=== PATIENT | female | born 1980 | race Caucasian/White ===

== ENCOUNTER 2020-12-15 18:49 | Emergency (ER) | payer BC, SELFPAY ==
[2020-12-15 18:49] VITALS: BP 145/101; PULSE 110; RESP 19; TEMP 38.2; O2SAT 96; BMI 36.9
[2020-12-15] MEDS: Ondansetron ODT 4 MG Tablet PO (21:11)
[2020-12-15] MEDS: Ketorolac 30 MG/ML Syringe IM (21:12)
[2020-12-15 21:23] VITALS: PULSE 99; O2SAT 95
--- NOTE | 2020-12-15 22:24 | EX.ED.DYSGE1 ---
HPI History of Present Illness Chief Complaint: General Illness Narrative Narrative: Patient presenting due to concern for potential coronavirus. Patient's tested positive earlier this week the patient developed symptoms on Friday. She states that she has been having fevers, myalgias, sore throat, cough, loose stools and some nausea but no significant vomiting. Patient denies any underlying history of lung disease. She denies any shortness of breath. She denies any chest pain or hemoptysis. Patient has been taking thqa-puc-ajxctyh remedies at home with modest relief. [facility] Medical History Cyst Depression Home Medications ondansetron 8 mg PO Q8H PRN PRN #20 tab 12/15/20 [Rx Last Taken Unknown] phenol [Chloraseptic Throat Flournoy] 4 spray MUCOUS MEMBRANE Q4H PRN #20 ml 12/15/20 [Rx Last Taken Unknown] Allergy/AdvReac Type Severity Reaction Status Date / Time adhesive Allergy Rash Verified 12/15/20 18:52 Social History Smoking Status: Former smoker ROS ROS ED Constitutional Constitutional ED: Reports chills and fever(s) ENT ENT ED: Denies rhinorrhea Cardiovascular Cardiovascular: Denies chest pain Respiratory/Chest Respiratory/Chest: Reports cough and dyspnea Gastrointestinal Gastrointestinal: Reports diarrhea and nausea Genitourinary Genitourinary ED: Denies dysuria or hematuria Musculoskeletal Musculoskeletal: Reports myalgias Integumentary Denies rash Neurologic Neurologic: Denies paresthesias or weakness Psychiatric Psychiatric: Denies depression Endocrine Endocrinology: Denies fatigue Allergic/Immunologic Allergic/Immunologic ED: Denies urticaria EXAM Physical Exam Const Vital Signs: 12/15/20 18:49 12/15/20 21:14 12/15/20 21:23 Temperature 100.8 F H Temperature Source Temporal Pulse Rate 110 H 99 Respiratory Rate 19 H Respiratory Pattern Normal Blood Pressure 145/101 H Blood Pressure Mean 115 Pulse Ox 96 95 Oxygen Delivery Method Room Air Room Air Positive well nourished and well developed General Appearance ED: well developed and NAD HEENT Reports moist mucous membranes Negative for trauma or tenderness Eyes EOMs intact bilaterally Neck no lymphadenopathy, supple and no JVD Chest Wall inspection of chest normal Resp normal respiratory effort and clear to auscultation bilaterally Cardio regular rate, regular rhythm, no murmurs and peripheral pulses 2+ throughout GI normal to inspection, nondistended, normoactive bowel sounds, non-tender and no masses Palpation: soft Back/Spine normal to inspection Extremity normal to inspection General Extremety ED: Negative for tenderness Neuro oriented x3 and no sensory deficits noted Sensorium / Orientation: alert Motor Exam: strength 5/5 throughout Psych mental status grossly normal Skin no rashes or lesions noted MDM MDM MDM Narrative Medical decision making narrative: Patient presented due to concern for coronavirus. She is nontoxic-appearing, well-hydrated, I do not believe that IV or imaging are indicated. This was confirmed by swab. Patient was given Toradol and Zofran and had symptomatic improvement on repeat evaluation. She will be discharged with a course of Zofran and Chloraseptic for sore throat. Patient was discharged in improved condition. Discharge Plan Triage Chief Complaint: General Illness ED Provider: Roberto Escalona Dx/Rx/DC Orders Clinical Impression: COVID-19 Instructions: Coronavirus Disease 2019 (COVID-19): Caring for Yourself or Others Prescriptions: New Chloraseptic Throat Flournoy 1.4 % aerosol,spray 4 spray mucous membrane Q4H PRN (Reason: sore throat) Qty: 20 RF: 0 ondansetron 4 mg tablet,disintegrating 8 mg PO Q8H PRN PRN (Reason: Nausea) Qty: 20 RF: 0 Primary Care Provider: Leticia Lamar Referrals: Leticia Lamar MD [Primary Care Provider] - 10-14 Days if not better Disposition Disposition: Home, Self Care
== END 2020-12-15 22:35 | disposition home or self-care (01) ==
PROVIDERS: Emergency Provider Emergency Medicine; PCP Family Medicine
DX: U07.1 COVID-19 (principal); Z87.891 Personal history of nicotine dependence
CPT/HCPCS: 87426; 96372; 99283

== ENCOUNTER 2022-07-12 16:22 | Emergency (ER) | payer BC, SELFPAY ==
[2022-07-12 16:23] VITALS: BP 138/84; PULSE 87; RESP 18; TEMP 35.9; O2SAT 98; BMI 43.7
== END 2022-07-12 17:45 | disposition left against medical advice (07) ==
LOC: ED 17:56
PROVIDERS: PCP Physician Assistant
DX: K92.2 Gastrointestinal hemorrhage, unspecified (principal); Z53.21 Procedure and treatment not carried out due to patient leaving prior to being seen by health care provider

== ENCOUNTER 2022-10-25 05:42 | Day surgery (SDC) | payer BC, SELFPAY ==
--- NOTE | 2022-10-25 | EMB_PTH ---
PATIENT: KENNEDY FOFANA [place] [facility] [place][id number] AGE/SX: 42/F ROOM: RE10/25/[address]: Dr. Rosalie Polk, MDDOB: 1980 BED: DIS: 10/25/2022 SPEC #: [id number] RECD: 10/25/22 11:41 STATUS: NADJA ANGELES #: [id number] NANCY: 10/25/22 00:[address]: Rosalie Polk DEPT: SURGICAL PATHOLOGY RECD BY: Jud Deluca ENTERED: 10/25/22 12:24 SP TYPE: ENDOM BX/C AYAANHR DR: MARLEN Ash Tissues: A - Endometrium, NOS B - Fallopian tube Procedures: Surgery Specimen Level II Surgery Specimen Level IV HEADER OPERATION: Laparoscopic salpingectomy PRE-OP DIAGNOSIS: Abnormal uterine bleeding, endometrial polyp, sterilization TISSUE SUBMITTED: A - Endometrial shavings, B - Bilateral tubes MICROSCOPIC DIAGNOSIS A - Endometrial shavings: Secretory endometrium. B - Bilateral fallopian tubes, salpingectomy: Bilateral fallopian tubes, no pathologic diagnosis. SJ: 10/28/2022 MICROSCOPIC DESCRIPTION Slides are reviewed. GROSS DESCRIPTION A - Received in fixative is one container labeled with the patient's name and designated endometrial shavings. The specimen consists of multiple irregular fragments of miramontes-pink soft tissue that in aggregate measure 3.0 x 2.5 x 0.3 cm. The specimen is totally submitted in one cassette. B - Received in fixative is one container labeled with the patient's name and designated bilateral fallopian tubes. The specimen consists of bilateral fallopian tubes in multiple pieces. Two segments of fallopian tube measures 7.5 cm in length and 0.5 cm in diameter and 4.2 cm in length and 0.5 cm in diameter. One segment consists of fallopian tube with fimbrial end measuring 2.0 cm in length and 1.0 cm in diameter. The fallopian tubes are not identified as right or left. Also present in the container are multiple fragments of soft tissue consistent with fimbrial end measuring in aggregate 1.5 x 1.0 x 0.3 cm. Sections reveal unremarkable cut surfaces. Certified Athletic Trainer sections are submitted in two cassettes as follows: 1?- one segment of fallopian tube and smaller segment of fallopian tube with fimbrial end, 2 - second segment of fallopian tube and fimbrial end in multiple pieces. / MING:miriam 10/25/2022 TC:4 CPT: 08631 x2, [id number]
[2022-10-25 06:38] VITALS: BP 112/79; PULSE 75; RESP 18; TEMP 36.6; O2SAT 97; BMI 42.3
[2022-10-25] MEDS: Lactated Ringers 1,000 ML 15 ML IV (06:38)
[2022-10-25 06:40] LABS: Hematocrit 41.6 % (37-47); Hemoglobin 13.8 g/dL (12.0-15.0); Mean Corp Hgb Conc 33.2 g/dL (32-36); Mean Corpuscular Hgb 29.4 pg (27.0-32.0); Mean Corpuscular Volume 88.7 fL (81-99); Platelet Count 245 K/mm3 (150-450); RBC Distribution Width SD 42.3 fl (35.1-43.9); Red Blood Count 4.69 M/mm3 (4.2-5.4); White Blood Count 10.4 K/mm3 (4.4-11.0)
[2022-10-25 06:55] LABS: Internal QC Validated? YES +Cl - CLEAR BKGD; Pregnancy, Urine Negative Negative
--- NOTE | 2022-10-25 07:17 | PCM.HP.BLA ---
History and Physical Date of Admission: 10/25/22 Pre-Op History and Physical ? HPI: The patient is a 42 year old female presenting for pre-operative visit. She is scheduled for Hysteroscopy D&C and possible polypectomy, jeannie ablation, laparoscopic salpingectomy for AUB, endometrial polyp And desires sterilization on 10/25/22 Procedure discussed along with risks, benefits and complications. Other alternatives discussed for management. Consent form signed? Yes. ? ? PAST MEDICAL HISTORY PAST MEDICAL HISTORY Diagnosis Date ? Abnormal uterine bleeding (AUB) ? ? Female infertility ? ? ? PAST SURGICAL HISTORY PAST SURGICAL HISTORY Procedure Laterality Date ? APPENDECTOMY ? ? ? PAST SURGICAL HISTORY OF ? ? ? cyst removal from umbilical area ? PAST SURGICAL HISTORY OF ? ? ? cyst removed from fallopian tubes ? ? ? CURRENT MEDICATIONS Current Outpatient Medications Medication Sig Dispense Refill ? buPROPion XL (WELLBUTRIN XL) 150 mg 24 hr tablet Take 150 mg by mouth. ? ? ? busPIRone (BUSPAR) 15 mg tablet Take 15 mg by mouth twice daily. ? ? ? Ibuprofen-diphenhydrAMINE HCl (IBUPROFEN PM) 200-25 mg cap Take by mouth. ? ? ? No current facility-administered medications for this visit. ? ? ALLERGIES: Adhesive ? PERSONAL HISTORY: SOCIAL HISTORY Social History ? Tobacco Use ? Smoking status: Former ? ? Types: Cigarettes ? Smokeless tobacco: Never Vaping Use ? Vaping Use: Former Substance Use Topics ? Alcohol use: Never ? Drug use: Never ? FAMILY HISTORY: FAMILY HISTORY No family history on file. ? REVIEW OF SYMPTOMS: negative except as noted above PHYSICAL EXAMINATION: ? VITALS: Last menstrual period 08/22/2022. ? GENERAL: The patient is well nourished, well hydrated in no acute distress. , The patient is oriented to time, place, and person. NECK: full range of motion LUNGS: Clear to auscultation bilaterally. no wheezes, rhonchi or rales HEART: Regular rate and rhythm, Normal heart sounds, and No murmurs or gallops ? IMPRESSION: 42yo with AUB, endometrial polyp, Desires sterilization ? PLAN: Hysteroscopy, dilation and curettage, polypectomy with Jeannie endometrial ablation and laparoscopic bilateral salpingectomy ? Pt has been counseled on risks/benefits and alternatives of surgery including but not limited to anesthesia, bleeding, infection, injury to pelvic structures including bowel, bladder, ureters and vessels. Pt wishes to proceed with surgery at this time. ? Pre and post op instructions reviewed ? ? I have reviewed and updated past medical and surgical history, medications and allergies Rosalie Schreiber MD
[2022-10-25] MEDS: Bupivacaine Mpf 0.5% 30 ML VIAL (08:52)
--- NOTE | 2022-10-25 09:19 | PCM.OPRPT ---
Report of Operation Date of Procedure: 10/25/22 Pre-Operative Diagnosis: AUB, EM polyp, Desires strerlization Post-Operative Diagnosis: same (possible polypoid tissue) Surgery/Procedure Performed:: Hysteroscopy, D&C, Attempted jeannie ablation converted to HTA, Laparoscopic bilateral salpingectomy Description of Surgical Findings:: cavity anteverted 8cm with cervix 4cm, too error code 006 with jeannie- thought to be too narrow. HTA performed without complication. Upon hysteroscopy thickened what apperead to be polypoid tissue- resected with Symphion. Bilateral Physiological ovarian cysts, Significant adhesion left adnexa to bowel, unable to remove left fimbria. tubes feel very firm. Surgeon: Rosalie Polk iron miner blasting: None Type of Anesthesia: General and Local Special Medications: 0.5% marcaine Specimen's removed: bilateral fallopian tubes, Endometrial curettings Drains: none Estimated Blood Loss (mL): 5cc Fluids Replaced: 1000 Description of Procedure: Informed consent was obtained the patient was taken the operating room she was placed in supine position. She was given anesthesia. She was then placed in the [facility] where she was prepped and draped in the normal sterile fashion. At this time the weighted speculum was placed in the posterior fornix of vagina. Single-tooth tenaculum was used to gently grasp the anterior lip the cervix. At this time the uterine cavity was sounded to approximately 8 cm, endocervix 4cm- anteverted uterus. Gentle dilatation was performed once adequate dilatation of the cervix was achieved the hysteroscope using normal saline as a distention medium was placed. Tubal ostia visualized. thickened endometrium with polypoid appearing tissue Symphion resecting device used to obtain endometrial curettings and remove tissue. Tissue will be sent to pathology for evaluation. Jeannie opened set to 4cm, severely anteverted- able error code 006- at this time decision made to change to HTA, this was performed for total 10min at 82degree Cel[place] without any leaks, good seal on cervix. Good visualization during entire procedure. After 10min cycle and coold down Tenaculum removed. and Manipulator was placed. Legs then placed in parallel with the abdomen the tenaculum and the weighted speculum were removed. 2 towel clamps were placed at level of umbilicus. Marcaine was injected infraumbilical and a small incision was made. The 5 mm trocar was placed under direct visualization. CO2 gas was used to insufflate the intra-abdominal cavity. Upon inspection no gross abnormalities appreciated- the uterus anteverted, bowel adherant to left adnexal region and bilateral small physiological ovarian cysts. At this time then the LLQ and RLQ ports were placed First Marcaine was injected and small incision was made a knife and the 5 mm trocars were placed. At this time then tubes were traced back to the fimbriated ends. Enseal was used to coagulate and ligate along mesosalpinx bilaterally until tubes removed completely. THE LEFT- FIMBRIA not able to be removed as it was adherant to the BOWEL- shantanu placed over this area as there was some oozing from an attempt to dissect it off bluntly. Good hemostasis was appreciated. At this time procedure was deemed complete successful. The gas was desufflated on from the intra-abdominal cavity. The trochars were removed. Skin was closed using 4-0 Monocryl in a subcutaneous fashion. Dermabond glue was placed. Instrument lap and needle counts were correct ?2. The uterine manipulator was removed. Vaginal sweep was performed it was negative. There were no complications anticipated normal postoperative course for this patient. Fluid deficiet for symphion 600cc. Grafts/Implants Used: none Procedure Start Time: 07:51 Procedure Stop Time: 09:19 Complications none Admit VTE Documentation VTE Present on Admission: Yes VTE Mechan Device Prophylaxis: SCD's VTE Pharm Prophylaxis ordered?: No Reason prophylaxis not ordered:: Procedure Not Indicated
[2022-10-25 09:30] VITALS: BP 110/72; BP 112/79; PULSE 72; RESP 16; TEMP 37.3; O2SAT 96
--- NOTE | 2022-10-25 09:30 | DCINST_ITS ---
Discharge Instructions Diet Discharge Diet: No restrictions Activity May resume sexual activity in: 2 weeks Lifting Restrictions: 20-25 lbs Dressing / Incision Call your doctor if your incision/area has: Continuous Slow Oozing, Sudden Increased Bleeding, Increased Pain/ Swelling, Increased Redness, Foul Smelling Discharge and Swelling at the incision site Call your doctor if you observe: Fever of 101 or Higher, Inability to urinate, Inability to have a bowel movement, Using more than 1 pad per hour and Uncontrolled pain Additional Dressing/Incision Instructions:: You have skin glue over your incision sites, do not pick off. You may shower and let the soap and water run over the incision sites and dab dry. Follow Up Care Please Follow Up With: Rosalie Polk MD When: 1-2 weeks post OP if you need an appointment please call [phone] Test Results: Test results from this visit will be discussed in further detail at your follow- up appointment, if applicable. Discharge Plan Admission Attending Provider: Rosalie Polk Primary Care Provider: Joan Espinosa Discharge Orders/Prescriptions Prescriptions: No Action buspirone 15 mg tablet 15 mg PO BID sertraline 100 mg tablet 150 mg PO QHS Referrals / Follow Up: Joan Espinosa PA [Primary Care Provider] - Disposition Disposition (needs filled in before D/C Order can be placed): Home, Self Care
[2022-10-25 09:45] VITALS: BP 112/79; BP 137/79; PULSE 66; RESP 16; O2SAT 97
[2022-10-25 10:00] VITALS: BP 112/79; BP 127/78; PULSE 63; RESP 16; O2SAT 95
[2022-10-25 10:15] VITALS: BP 112/79; BP 119/72; PULSE 59; RESP 16; TEMP 36.7; O2SAT 95
[2022-10-25 11:32] VITALS: BP 112/79; BP 136/82; PULSE 71; RESP 16; TEMP 37.3; O2SAT 99
== END 2022-10-25 11:35 | disposition home or self-care (01) ==
LOC: SDC 05:46 → AC 05:48
PROVIDERS: PCP Physician Assistant; Referring Provider Obstetrics & Gynecology; Visit Provider Obstetrics & Gynecology
PROC: (CPT 58661; principal; 2022-10-25 07:15)
PROC: 0UB98ZZ Excision of Uterus, Via Natural or Artificial Opening Endoscopic (ICD-10-PCS; CPT 58558; 2022-10-25 07:15)
DX: N93.9 Abnormal uterine and vaginal bleeding, unspecified (principal); Z30.2 Encounter for sterilization; R93.89 Abnormal findings on diagnostic imaging of other specified body structures; N85.4 Malposition of uterus; N83.201 Unspecified ovarian cyst, right side; N83.202 Unspecified ovarian cyst, left side; F17.210 Nicotine dependence, cigarettes, uncomplicated
CPT/HCPCS: 58661; 58563; 00840; 81025; 85027; 88302; 88305; J7120; C1760; J2405; J3490